=== PATIENT | female | born 1990 | race Caucasian/White ===

== ENCOUNTER 2020-02-14 09:57 | Inpatient (IN) | payer MEDICAID, SELFPAY ==
[~2020-02-14] VITALS: Ht 162.6 cm; Wt 86.2 kg
[2020-02-14] MEDS ORDERED: DINOPROSTONE 10 MG SUPP VG ONE (10:45)
[2020-02-14] MEDS ORDERED: TERBUTALINE SULFATE 1 MG/ML VIAL SUBCUT ONE (10:45)
[2020-02-14 11:03] LABS: BASOPHILS # (AUTO) 0.1 K/uL (0.0-0.2); BASOPHILS % (AUTO) 0.8 % (0.0-2.0); EOSINOPHILS # (AUTO) 0.1 K/uL (0.0-0.4); HEMATOCRIT 39.6 % (36-48); HEMOGLOBIN 13.2 g/dL (12.0-16.0); LYMPHOCYTES # (AUTO) 1.6 K/uL (1.0-5.5); LYMPHOCYTES % (AUTO) 21.9 % (20.5-51.5); MEAN CORPUSCULAR HEMOGLOBIN 30 pg (27-31); MEAN CORPUSCULAR HGB CONC 33 % (32-36); MEAN CORPUSCULAR VOLUME 90 fL (79.0-98.0); MONOCYTES # (AUTO) 0.5 K/uL (0.0-1.0); MONOCYTES % (AUTO) 7.6 % (1.7-9.3); NEUTROPHILS # (AUTO) 4.8 K/uL (1.8-7.7); NEUTROPHILS % (AUTO) 67.7 % (40.0-70.0); PLATELET COUNT (AUTO) 200 K/uL (130-430); RED BLOOD CELL COUNT(AUTO) 4.41 MIL/uL (4.2-6.2); RED CELL DISTRIBUTION WIDTH 13.5 % (9.0-15.0); WHITE BLOOD COUNT (AUTO) 7.2 K/uL (4.8-10.8)
[2020-02-14] MEDS: LR 1,000 ML IV SCH ×2 (11:27→23:00)
[2020-02-14 15:59] VITALS: BP_SYST 120
[2020-02-14] MEDS ORDERED: MORPHINE SULFATE 10 MG/ML VIAL IVP PRN (20:30)
[2020-02-14] MEDS ORDERED: NALOXONE HCL 0.4 MG/ML AMP (NARCAN) IVP PRN (20:30)
[2020-02-14] MEDS ORDERED: fentaNYL CITRATE/PF 100 MCG/2 ML AMP ONE (22:48)
[2020-02-14] MEDS ORDERED: ROPIVACAINE HCL/PF 0.2% 200 ML ONE (22:48)
[2020-02-14] MEDS ORDERED: LR 500 ML IV ONE (23:42)
[2020-02-14] MEDS ORDERED: FENT2mCg/mL-ROPIVA0.2%/NS EPID 200 ML EP SCH (23:45)
[2020-02-15] MEDS ORDERED: OXYTOCIN/0.9 % SODIUM CHLORIDE 1,000 ML IV SCH (00:30)
[2020-02-15] MEDS ORDERED: OXYTOCIN/0.9 % SODIUM CHLORIDE 1,000 ML IV ONE (08:57)
[2020-02-15] MEDS ORDERED: ANUSOL 1 EA SUPP.RECT (PREPARATION H) RC PRN (09:00)
[2020-02-15] MEDS ORDERED: HYDROCORTISONE 0.5%, 28.35 GM TOPICAL CREAM TP PRN (09:00)
[2020-02-15] MEDS ORDERED: METHYLERGONOVINE MALEATE 0.2 MG TABLET PO PRN (09:00)
[2020-02-15] MEDS ORDERED: DOCUSATE SODIUM 100 MG CAPSULE PO PRN (09:00)
[2020-02-15] MEDS ORDERED: DERMOPLAST SPRAY TP PRN (09:00)
[2020-02-15] MEDS ORDERED: LANOLIN 7 GM OINT. TP PRN (09:00)
[2020-02-15] MEDS ORDERED: SENNOSIDES/DOCUSATE SODIUM 1 TAB TABLET(SENOKOT-S) PO PRN (09:00)
[2020-02-15] MEDS ORDERED: WITCH HAZEL LEAF 1 MED.PAD MED.PAD TP PRN (09:00)
[2020-02-15] MEDS ORDERED: OXYCODONE/ACETAMINOPHEN 5-325 TABLET PO PRN (09:00)
[2020-02-15] MEDS: OXYCODONE/ACETAMINOPHEN 5-325 TABLET PO PRN (11:19)
[2020-02-15] MEDS: IBUPROFEN 800 MG TABLET PO PRN (11:20)
[2020-02-15] MEDS ORDERED: TEMAZEPAM 15 MG CAPSULE PO PRN (21:00)
[2020-02-16] MEDS: IBUPROFEN 800 MG TABLET PO PRN ×3 (02:30→11:54)
[2020-02-16 06:45] LABS: HEMATOCRIT 28.3 % (36-48); HEMOGLOBIN 9.3 g/dL (12.0-16.0)
[2020-02-16] MEDS: OXYCODONE/ACETAMINOPHEN 5-325 TABLET PO PRN (10:45)
[2020-02-16] MEDS ORDERED: DIPH-TET-PERTUS Vaccine 0.5 ML VIAL (ADACEL) I.M. ONE (11:25)
[2020-02-17 20:28] LABS: FTA-Ab (T PALLIDUM) Non Reactive (Non Reactive)
== END 2020-02-16 12:05 | disposition home or self-care (01) | DRG 560 ==
LOC: SPU 09:57
PROVIDERS: ADMIT Obstetrics & Gynecology; ATTEND Obstetrics & Gynecology
PROC: 10D07Z6 Extraction of Products of Conception, Vacuum, Via Natural or Artificial Opening (ICD-10-PCS; principal; 2020-02-15)
PROC: 3E0R3BZ Introduction of Anesthetic Agent into Spinal Canal, Percutaneous Approach (ICD-10-PCS; 2020-02-15)
PROC: 00HU33Z Insertion of Infusion Device into Spinal Canal, Percutaneous Approach (ICD-10-PCS; 2020-02-15)
DX: O70.9 Perineal laceration during delivery, unspecified (principal); Z3A.40 40 weeks gestation of pregnancy; Z37.0 Single live birth
CPT/HCPCS: 36415; 85018-TC; 85025; 86592; 86780; 86886; 86900; 86901; 90715; J2270; J2590; J3010; J7120; U0003-CS